=== PATIENT | female | born 1965 | race Caucasian/White ===

== ENCOUNTER 2018-05-13 05:06 | Day surgery (SDC) | payer BC ==
[2018-05-11 15:38] VITALS: BMI 22.8
[2018-05-13] MEDS ORDERED: ONDANSETRON 4 MG/2 ML VIAL IVPUSH PRN (07:53)
[2018-05-13] MEDS ORDERED: oxyCODONE HCL 5 MG TABLET PO PRN ×2 (07:53)
[2018-05-13] MEDS ORDERED: MIDAZOLAM HCL 2 MG/2 ML SINGLE DOSE VIAL ONE (07:56)
[2018-05-13] MEDS ORDERED: LACTATED RINGERS SOLUTION 1,000 ML IV SCH (08:00)
[2018-05-13] MEDS ORDERED: SUCCINYLCHOLINE CHLORIDE 200 MG/10 ML VIAL ONE (08:03)
[2018-05-13] MEDS ORDERED: PROPOFOL 20 ML ONE (08:03)
--- NOTE | 2018-05-13 10:04 | HP ---
History & Physical Update - History History: No Change - Physical Physical: No Change - Assessment Assessment: No Change - Plan Plan: No Change (No change in HP)
--- NOTE | 2018-05-13 10:05 | OP ---
Operative Note - Note: Operative Date: 05/13/18 Pre-Operative Diagnosis: HPV. Cervical Dysplasia Operation: LEEP cone Findings: ENDO cervix Ecto cervix submitted Post-Operative Diagnosis: Same as Pre-op Surgeon: Claudine Devine Anesthesia: General Operative Report Dictated: Yes
[2018-05-13] MEDS ORDERED: IBUPROFEN 400 MG TABLET (FP) PO PRN (10:07)
[2018-05-13] MEDS ORDERED: ACETAMINOPHEN 325 MG TABLET (FP) PO PRN (10:07)
[2018-05-13 12:00] VITALS: TEMP 97.7
--- NOTE | 2018-05-13 12:18 | OP ---
DATE OF OPERATION: 05/13/2018 PREOPERATIVE DIAGNOSIS: Cervical dysplasia, human papillomavirus infection. OPERATION: LEEP (loop electrosurgical excision procedure)/cone. POSTOPERATIVE DIAGNOSIS: Cervical dysplasia, human papillomavirus infection. SURGEON: Claudine Devine MD ANESTHESIA: General. ANESTHESIOLOGIST: Darryl Blunt MD ESTIMATED BLOOD LOSS: 3 mL. PROCEDURE: Patient was taken to the operating room, placed in dorsal lithotomy position, prepped and draped in the usual sterile fashion. A time-out was performed in accordance with hospital regulations. A speculum was placed in the vagina, and Monsel was placed on the cervix. A large LEEP was then performed followed by an ectocervix LEEP. Specimen was submitted to Pathology. Cauterization of the cervix was then done. Hemostasis was achieved, and then, Monsel was placed. Speculum was then removed. All instruments were then removed. Patient tolerated the procedure well. Estimated blood loss 3 mL. CLAUDINE DEVINE M.D. SHARON/[id number]
[2018-05-13 12:38] VITALS: BP 102/58; PULSE 61
--- NOTE | 2018-05-18 17:47 | PATH ---
Surgical Pathology Report Patient Name: TOMASA HARRISON [facility]. Rec. #: [id number] /Age/Gender: 1965 (Age: 52) / F Account: [id number] Location: [facility] SURGICAL Taken: 05/13/2018 Received: 05/13/2018 Reported: 05/18/2018 Physicians: Claudine Devine M.D. Specimen(s) Received A: ECTOCERVIX B: ENDOCERVIX Clinical History Low grade cervical dysplasia Final Diagnosis A. ECTOCERVIX, EXCISION: ECTO AND ENDOCERVICAL TISSUE WITH RAFAELA 1 (CERVICAL INTRAEPITHELIAL NEOPLASIA, GRADE 1). Note: The cauterized margin is involved by RAFAELA 1. Immunohistochemical stains (at block A1) performed at [facility] ([id number]) interpreted at [facility] show P16 is negative. Ki-67 is noncontributory. Positive and negative controls (internal if applicable) show appropriate results. B. ENDOCERVIX, EXCISION: ENDOCERVICAL TISSUE, NEGATIVE FOR DYSPLASIA. Electronically Signed Nick Mendez M.D. Gross Description A. Received in formalin labeled "ectocervix," is a 2.1 x 1.8 x 0.5 cm irregular, unoriented portion of soft tissue, consistent with a portion of cervix. There is no cervical os identified. The specimen is partially surfaced by a rios-pink mucosa. The specimen is serially sectioned and entirely submitted in 3 cassettes. B. Received in formalin labeled "endocervix," is a 2.3 x 0.4 x 0.2 cm rios, unoriented portion of soft tissue, consistent with a portion of cervix. There is no cervical os present. The specimen is inked in blue, serially sectioned and entirely submitted in 2 cassettes. /05/13/2018 saudi05/13/2018
== END 2018-05-13 12:20 | disposition home or self-care (01) ==
LOC: JASU-SURG 05:06
PROVIDERS: ATTEND Obstetrics & Gynecology
PROC: 0UBC7ZX Excision of Cervix, Via Natural or Artificial Opening, Diagnostic (ICD-10-PCS; principal; 2018-05-13 09:00)
DX: N87.0 Mild cervical dysplasia (principal); R87.810 Cervical high risk human papillomavirus (HPV) DNA test positive
CPT/HCPCS: 88305-TC; 94760

== ENCOUNTER 2023-05-07 04:14 | Day surgery (SDC) | payer BC ==
[2023-05-01 16:23] VITALS: BMI 22.1
[2023-05-07] MEDS ORDERED: ceFAZolin SODIUM 1 GM VIAL ONE (06:56)
[2023-05-07] MEDS: PHENAZOPYRIDINE HCL 100 MG TABLET (FP) PO ONE (07:02)
[2023-05-07] MEDS ORDERED: PROPOFOL 20 ML ONE ×2 (07:39→09:32)
[2023-05-07] MEDS ORDERED: ROCURONIUM BROMIDE 50 MG/5 ML SYRINGE ONE (07:39)
[2023-05-07] MEDS ORDERED: MIDAZOLAM HCL 2 MG/2 ML SINGLE DOSE VIAL ONE (07:39)
[2023-05-07] MEDS ORDERED: LIDOCAINE HCL/PF 2% SDV 5ML VIAL ONE (07:40)
[2023-05-07] MEDS: ceFAZolin SODIUM 1 GM VIAL IVPB ONE (07:59)
[2023-05-07] MEDS ORDERED: SODIUM CHLORIDE 0.9% P/F 10 ML VIAL IJ ONE (08:01)
[2023-05-07] MEDS ORDERED: METOCLOPRAMIDE HCL INJECTION 10 MG/2 ML VIAL ONE (08:09)
[2023-05-07] MEDS ORDERED: ONDANSETRON 4 MG/2 ML VIAL ONE (08:09)
[2023-05-07] MEDS ORDERED: DEXAMETHASONE SOD PHOSPHATE 4 MG/1 ML VIAL ONE (08:09)
[2023-05-07] MEDS ORDERED: SUGAMMADEX SODIUM 200 MG/2 ML VIAL ONE (09:30)
[2023-05-07] MEDS ORDERED: ONDANSETRON 4 MG/2 ML VIAL IVPUSH PRN ×2 (10:04→10:17)
[2023-05-07] MEDS ORDERED: PROMETHAZINE HCL 25 MG/1 ML VIAL IVPB PRN (10:04)
[2023-05-07] MEDS: MEPERIDINE HCL 25 MG/ML VIAL IVPUSH ONE ×2 (10:05)
[2023-05-07] MEDS ORDERED: ZOLPIDEM TARTRATE 5 MG TABLET PO PRN (10:13)
[2023-05-07] MEDS ORDERED: oxyCODONE HCL 5 MG TABLET PO PRN (10:13)
[2023-05-07] MEDS: LACTATED RINGERS SOLUTION 1,000 ML IV SCH (10:15)
[2023-05-07] MEDS ORDERED: BISACODYL 5 MG TABLET.DR (FP) PO PRN (10:19)
[2023-05-07] MEDS: ACETAMINOPHEN 325 MG TABLET (FP) PO SCH ×2 (10:38→17:30)
[2023-05-07] MEDS: CEFAZOLIN 2 GM in DEXTROSE 5%-WATER - 100 ML IVPB ONE (10:38)
[2023-05-07] MEDS: INSULIN ASPART SLIDING SCALE (NOVOLOG) 1 VIAL SQ SCH (11:13)
[2023-05-07] MEDS: SIMETHICONE 80 MG TAB.CHEW (FP) PO PRN (13:54)
[2023-05-07] MEDS: IBUPROFEN 600 MG TABLET (FP) PO PRN (13:54)
[2023-05-07] MEDS: CEFAZOLIN SODIUM 2 GM in DEXTROSE 5%-WATER 100 ML IVPB SCH (17:28)
[2023-05-07 18:40] LABS: BASO % 0.1 % (0-2.0); HEMATOCRIT 32.3 % (32.4-45.2); HEMOGLOBIN 10.8 GM/dL (10.7-15.3); LYMPH % 9.9 % (8-40); MCH 33.3 pg (25.7-33.7); MCHC 33.4 g/dl (32.0-36.0); MEAN CELL VOLUME 99.6 fl (80-96); MEAN PLT VOLUME 7.7 fl (7.5-11.1); MONO % 5.7 % (3.8-10.2); NEUT % 84.3 % (42.8-82.8); PLATELET COUNT 221 10^3/uL (134-434); RBC 3.24 M/mm3 (3.60-5.2); RDW 12.1 % (11.6-15.6)
[2023-05-07 19:07] LABS: CALCIUM 8.8 mg/dL (8.5-10.1); POTASSIUM 4.2 mmol/L (3.5-5.1)
[2023-05-07 19:09] LABS: BLOOD UREA NITROGEN 9.5 mg/dL (7-18)
[2023-05-07 19:11] LABS: CREATININE 0.7 mg/dL (0.55-1.3)
[2023-05-07] MEDS: DOCUSATE SODIUM 100 MG CAPSULE (FP) PO PRN (20:02)
[2023-05-07 20:08] VITALS: RESP 18
[2023-05-08 06:09] VITALS: BP 95/59; PULSE 73; TEMP 98.4
[2023-05-08 08:25] LABS: BASO % 0.3 % (0-2.0); EOS % 1.1 % (0-4.5); HEMATOCRIT 30.8 % (32.4-45.2); HEMOGLOBIN 10.3 GM/dL (10.7-15.3); LYMPH % 29.2 % (8-40); MCH 33.7 pg (25.7-33.7); MCHC 33.5 g/dl (32.0-36.0); MEAN CELL VOLUME 100.5 fl (80-96); MONO % 8.9 % (3.8-10.2); NEUT % 60.5 % (42.8-82.8); PLATELET COUNT 191 10^3/uL (134-434); RBC 3.06 M/mm3 (3.60-5.2); RDW 12.2 % (11.6-15.6); WHITE BLOOD COUNT 6.3 K/mm3 (4.0-10.0)
[2023-05-08 08:55] LABS: POTASSIUM 4.2 mmol/L (3.5-5.1)
[2023-05-08 08:57] LABS: ALBUMIN 2.9 g/dl (3.4-5.0); CALCIUM 8.3 mg/dL (8.5-10.1)
[2023-05-08 09:01] LABS: CREATININE 0.6 mg/dL (0.55-1.3)
[2023-05-08 09:02] LABS: BILIRUBIN,TOTAL 0.6 mg/dL (0.2-1); TOT PROT 5.6 g/dl (6.4-8.2)
[2023-05-08] MEDS: valACYclovir HCL 500 MG TABLET (FP) PO SCH (09:11)
[2023-05-08] MEDS: ENOXAPARIN NA (PORCINE) 40 MG/0.4 ML DISP.SYRIN SQ SCH (09:11)
== END 2023-05-08 12:14 | disposition home or self-care (01) ==
LOC: JASUSAT 04:14 → JASU-SURG 04:14 → J3W 13:39 → JASUSAT 05-08 12:14
PROVIDERS: ATTEND Obstetrics & Gynecology
PROC: 8E0W4CZ Robotic Assisted Procedure of Trunk Region, Percutaneous Endoscopic Approach (ICD-10-PCS; 2023-05-07)
PROC: 0UB14ZZ Excision of Left Ovary, Percutaneous Endoscopic Approach (ICD-10-PCS; 2023-05-07)
PROC: 0UT9FZZ Resection of Uterus, Via Natural or Artificial Opening With Percutaneous Endoscopic Assistance (ICD-10-PCS; principal; 2023-05-07 07:30)
PROC: 0UB77ZZ Excision of Bilateral Fallopian Tubes, Via Natural or Artificial Opening (ICD-10-PCS; 2023-05-07 07:30)
DX: D25.9 Leiomyoma of uterus, unspecified (principal); N83.202 Unspecified ovarian cyst, left side; R87.810 Cervical high risk human papillomavirus (HPV) DNA test positive; N72 Inflammatory disease of cervix uteri
CPT/HCPCS: 58552; 58662; S2900; 36415; 80048; 80053; 82962; 85025; 86850; 86900; 86901; 88305-TC; 88307-TC; 88341-TC; 88342-TC; 94010; 94760